=== PATIENT | female | born 1985 | race Hispanic/Latino ===

== ENCOUNTER 2018-09-20 15:04 | Emergency (ER) | payer SELFPAY ==
--- NOTE | 2018-09-20 15:26 | Emergency Department Report ---
Blank Doc - Documentation Documentation: This is a 33-year-old female that presents with right axilla boils. This initial assessment/diagnostic orders/clinical plan/treatment(s) is/are subject to change based on patient's health status, clinical progression and re- assessment by fellow clinical providers in the ED. Further treatment and workup at subsequent clinical providers discretion. Patient/guardians urged not to elope from the ED as their condition may be serious if not clinically assessed and managed. Initial orders include: 1- Patient sent to [facility] for further evaluation and treatment
[2018-09-20] MEDS ORDERED: NORCO 5/325 PO ONE (16:17)
[2018-09-20] MEDS ORDERED: IBUPROFEN PO ONE (16:17)
--- NOTE | 2018-09-20 16:18 | Emergency Department Report ---
Abscess Boil HPI - HPI Chief Complaint: Skin/Abscess/Foreign Body Stated Complaint: INFECTION UNDERARM Time Seen by Provider: 09/20/18 15:25 Duration: 4 Days Location: Other (right armpit) Severity: Moderate History: Yes Pain, Yes Purulent Drainage, Yes Previous History, No Fever, No Numbness, No Foreign Body, No Insect Bite HPI: 33-year-old female presents with cellulitis abscess right arm.. Patient states pain consult to touch. Patient states it's gotten bigger since it first began. She denies straining or fever Home Medications: Home Medications Medication Instructions Recorded Confirmed Last Taken Sertraline [Zoloft] 1 tab PO QDAY 07/14/13 09/25/13 07/13/13 08:00 Previous Rx's Medication Instructions Recorded Last Taken Type Bacitracin Zinc Oint 1 applicatio TP TID #1 tube 10/10/14 Unknown Rx Oxycodone HCl/Acetaminophen 1 each PO Q8HR PRN #15 tablet 10/10/14 Unknown Rx [Percocet 10-325 mg] HYDROcodone/APAP 10-325 [[place] 1 each PO Q6HR PRN #12 tablet 12/30/14 Unknown Rx 10/325] Promethazine Dm (Nf) [Phenergan Dm 5 ml PO Q6H PRN #120 ml 12/30/14 Unknown Rx 6.25/15 mg 5 ml] Amoxicillin [Trimox CAP] 500 mg PO Q8H #30 capsule 04/22/15 Unknown Rx Neomy/Polymyx B/Hc (Otic) Soln 4 drops OTIC TID #1 bottle 04/22/15 Unknown Rx [Cortisporin (Otic) Soln] Cyclobenzaprine HCl [Flexeril 5 MG 5 mg PO TID #30 tab 05/18/15 Unknown Rx TAB] Clindamycin [Clindamycin CAP] 300 mg PO Q8H #21 cap 09/20/18 Unknown Rx Ibuprofen [Motrin 800 MG tab] 800 mg PO Q8HR #30 tablet 09/20/18 Unknown Rx Allergies/Adverse Reactions: Allergies Allergy/AdvReac Type Severity Reaction Status Date / Time ketorolac tromethamine Allergy Rash Verified 03/27/13 21:04 [From Toradol] latex Allergy Itching Verified 03/27/13 21:04 tramadol Allergy Rash Verified 03/27/13 21:04 sulfamethoxazole AdvReac Vomiting Verified 03/27/13 21:04 [From Bactrim] trimethoprim [From Bactrim] AdvReac Vomiting Verified 03/27/13 21:04 ED Review of Systems ROS: Stated complaint: INFECTION UNDERARM Other details as noted in HPI ED Past Medical Hx - Past Medical History Hx Kidney Stones: Yes Hx Psychiatric Treatment: Yes (anxiety, suicidal ideation (seen in this ED 09/25/13 for SI)) Additional medical history: Endometriosis. Polysubstance abuse: methamphetamines, xanax, "pain pills" - Surgical History Past Surgical History?: Yes Hx Cholecystectomy: Yes Additional Surgical History: BTL. x 4. Ex-lap for endometriosis - Social History Smoking Status: Current Every Day Smoker Substance Use Type: None - Medications Home Medications: Home Medications Medication Instructions Recorded Confirmed Last Taken Type Sertraline [Zoloft] 1 tab PO QDAY 07/14/13 09/25/13 07/13/13 08:00 History Bacitracin Zinc Oint 1 applicatio TP TID #1 tube 10/10/14 Unknown Rx Oxycodone HCl/Acetaminophen 1 each PO Q8HR PRN #15 tablet 10/10/14 Unknown Rx [Percocet 10-325 mg] HYDROcodone/APAP 10-325 [[place] 1 each PO Q6HR PRN #12 tablet 12/30/14 Unknown Rx 10/325] Promethazine Dm (Nf) [Phenergan Dm 5 ml PO Q6H PRN #120 ml 12/30/14 Unknown Rx 6.25/15 mg 5 ml] Amoxicillin [Trimox CAP] 500 mg PO Q8H #30 capsule 04/22/15 Unknown Rx Neomy/Polymyx B/Hc (Otic) Soln 4 drops OTIC TID #1 bottle 04/22/15 Unknown Rx [Cortisporin (Otic) Soln] Cyclobenzaprine HCl [Flexeril 5 MG 5 mg PO TID #30 tab 05/18/15 Unknown Rx TAB] Clindamycin [Clindamycin CAP] 300 mg PO Q8H #21 cap 09/20/18 Unknown Rx Ibuprofen [Motrin 800 MG tab] 800 mg PO Q8HR #30 tablet 09/20/18 Unknown Rx ED Abscess Boil Physical Exam - Exam General: Vital signs noted. No distress. Alert and acting appropriately. Size: 3 cm Exam: Yes Tenderness, Yes Fluctuance, Yes Surrounding Cellulites/Erythema, Yes Normal Neurologic Exam, Yes Normal Circulation, No Lymphangitis, No Crepitation, No Heart Murmur I & D Note - I & D Note I & D Note: Patient positioned appropriately, 15cc lidocaine with/without epinephrine was used as a local anesthetic. #11 blade scalpal used for single incision. Additional local anesthetic injected into surrounding viable tissue prior to blunt dissection of loculated adhesions. Copius drainage of pus . Procedure tolerated without complications. Wound dressed with sterile 4x4 guaze and paper tape. Pt tolerated procedure well. ED Course Vital Signs 09/20/18 15:26 Temperature 98 F Pulse Rate 104 H Respiratory 18 Rate Blood Pressure 117/68 O2 Sat by Pulse 99 Oximetry Critical care attestation.: If time is entered above; I have spent that time in minutes in the direct care of this critically ill patient, excluding procedure time. ED Medical Decision Making - Medical Decision Making 33-year-old female presents with axillary abscess. Patient was intolerable of the procedure. Patient was screaming and yelling saying that she wants a procedure stopped. He was very belligerent and cursing. Therefore procedure was stopped After about 20 minutes patient stated she was ready to continue. I was unable to pack the abscess with iodoform gauze. I discussed with patient and her boyfriend to apply warm compresses 3 times a day and express Discuss to follow-up in 3 days to want check. Medicines are normal she is in no acute distress she was discharged. Instructions, antibiotics and pain medications. ED Disposition Clinical Impression: Axillary abscess Disposition: TO HOME OR SELFCARE Is pt being admited?: No Does the pt Need Aspirin: No Condition: Stable Instructions: Abscess Incision and Drainage (ED), Abscess (ED) Additional Instructions: Make sure to follow up with the primary care physician as discussed. Take all your medications as you've been prescribed. If you have any worsening symptoms or develop new symptoms please return to ED immediately. Prescriptions: Clindamycin [Clindamycin CAP] 300 mg PO Q8H #21 cap Ibuprofen [Motrin 800 MG tab] 800 mg PO Q8HR #30 tablet Referrals: FREEDOM VARGHESE MD [Primary Care Provider] - 3-5 Days Forms: Accompanied Note, Work/School Release Form(ED)
[2018-09-20] MEDS ORDERED: XYLOCAINE 1% 20 mL INFILTRATI NR (16:30)
[2018-09-20 18:19] VITALS: BP 117/70
== END 2018-09-20 18:22 | disposition home or self-care (01) ==
LOC: ED 15:04
DX: L02.411 Cutaneous abscess of right axilla (principal); Z79.899 Other long term (current) drug therapy; F17.200 Nicotine dependence, unspecified, uncomplicated; F41.9 Anxiety disorder, unspecified; Z90.49 Acquired absence of other specified parts of digestive tract; Z88.6 Allergy status to analgesic agent; Z91.040 Latex allergy status; Z88.2 Allergy status to sulfonamides
CPT/HCPCS: 99282

== ENCOUNTER 2022-01-08 12:36 | Emergency (ER) | payer SELFPAY ==
[2022-01-08] MEDS ORDERED: SODIUM CHLORIDE 0.9% 1000 ML 1,000 ML IV ONE (13:29)
[2022-01-08] MEDS ORDERED: ONDANSETRON 4 MG/2 ML INJ IV ONE (13:29)
[2022-01-08] MEDS ORDERED: ACETAMINOPHEN 500 MG TAB PO ONE (13:29)
[2022-01-08] MEDS ORDERED: FAMOTIDINE 20 MG/2 ML INJ IV ONE (13:29)
[2022-01-08 14:10] LABS: Basophils % (Auto) 0.3 % (0.0-1.8); Eosinophils # (Auto) 0.1 K/mm3 (0.0-0.4); Eosinophils % (Auto) 1.5 % (0.0-4.3); Hematocrit 37.5 % (30.3-42.9); Hemoglobin 12.5 gm/dl (10.1-14.3); Lymphocytes # (Auto) 0.3 K/mm3 (1.2-5.4); Lymphocytes % (Auto) 4.7 % (13.4-35.0); Mean Corpuscular HGB Conc 33 % (30-34); Mean Corpuscular Volume 82 fl (79-97); Monocytes # (Auto) 0.3 K/mm3 (0.0-0.8); Platelet Count 205 K/mm3 (140-440); Red Blood Count 4.58 M/mm3 (3.65-5.03); Red Cell Distribution Width 13.8 % (13.2-15.2)
[2022-01-08 14:31] LABS: Alanine Aminotransferase 14 units/L (7-56); BUN/Creatinine Ratio 11; Blood Urea Nitrogen 9 mg/dL (7-17); Calcium 8.8 mg/dL (8.4-10.2); Hemolysis Index 4
--- NOTE | 2022-01-08 15:15 | XRay Report ---
CHEST 1 VIEW INDICATION: COUGH, FEVER. COMPARISON: 07/14/2014 FINDINGS: Support devices: None. Heart: Normal. Lungs/Pleura: No acute pulmonary or pleural findings. IMPRESSION: 1. No acute findings. Signer Name: Tobi Blanca MD Signed: 01/08/2022 3:11 PM Workstation Name: [id number]
[2022-01-08 20:04] VITALS: BP 101/62
--- NOTE | 2022-01-08 20:35 | Emergency Department Report ---
- General Chief Complaint: Fever Stated Complaint: FEVER/NAUSEA/VOMITING Source: patient Mode of arrival: Ambulatory Limitations: No Limitations - History of Present Illness Initial Comments: Patient is a 36-year-old female with a history of endometriosis, polysubstance abuse, kidney stones, anxiety and depression who presents to the ED with complaint of acute onset persistent nasal and sinus congestion, persistent frontal sinus pressure, persistent dry cough with diffuse body aches and pains, fever and chills for the last 2 days. Patient states that in the last 12 hours her symptoms have worsened such that she was unable to eat because of worsening symptoms. Patient denies dizziness, syncope, nausea and vomiting or diarrhea, abdominal pain, chest pain or shortness of breath, dysuria, urinary frequency and urgency or change in vision. MD Complaint: fever, cough, rhinorrhea, nasal congestion, sinus pain, other (Diffuse body aches and pains) -: days(s) (2) Severity: moderate Severity scale (0 -10): 6 Quality: dull, aching Consistency: constant Improves With: nothing Worsens With: nothing Context: sick contacts Associated Symptoms: denies other symptoms, fever, chills, myalgias, headache, rhinorrhea, nasal congestion, cough. denies: diaphoresis, sore throat, stiff neck, chest pain, shortness of breath, abdominal pain, nausea, vomiting, diarrhea, dysuria, rash, right sweats, weight loss, epistaxis Treatments Prior to Arrival: none - Related Data Home Medications Medication Instructions Recorded Confirmed Last Taken Sertraline [Zoloft] 1 tab PO QDAY 07/14/13 09/25/13 07/13/13 08:00 Previous Rx's Medication Instructions Recorded Last Taken Type Bacitracin Zinc Oint 1 applicatio TP TID #1 tube 10/10/14 Unknown Rx Oxycodone HCl/Acetaminophen 1 each PO Q8HR PRN #15 tablet 10/10/14 Unknown Rx [Percocet 10-325 mg] HYDROcodone/APAP 10-325 [[place] 1 each PO Q6HR PRN #12 tablet 12/30/14 Unknown Rx 10/325] Promethazine Dm (Nf) [Phenergan Dm 5 ml PO Q6H PRN #120 ml 12/30/14 Unknown Rx 6.25/15 mg 5 ml] Amoxicillin [Trimox CAP] 500 mg PO Q8H #30 capsule 04/22/15 Unknown Rx Neomy/Polymyx B/Hc (Otic) Soln 4 drops OTIC TID #1 bottle 04/22/15 Unknown Rx [Cortisporin (Otic) Soln] Cyclobenzaprine HCl [Flexeril 5 MG 5 mg PO TID #30 tab 05/18/15 Unknown Rx TAB] Clindamycin [Clindamycin CAP] 300 mg PO Q8H #21 cap 09/20/18 Unknown Rx Ibuprofen [Motrin 800 MG tab] 800 mg PO Q8HR #30 tablet 09/20/18 Unknown Rx Acetaminophen [Tylenol] 500 mg PO Q6HR PRN #24 tablet 01/08/22 Unknown Rx Brompheniramine/Pseudoephed/Dm 5 ml PO Q6H #120 ml 01/08/22 Unknown Rx [Bromfed Dm Cough Syrup] Cetirizine HCl [Zyrtec 10mg tab] 10 mg PO DAILY #30 tab 01/08/22 Unknown Rx Allergies Allergy/AdvReac Type Severity Reaction Status Date / Time ketorolac tromethamine Allergy Rash Verified 01/08/22 12:47 [From Toradol] latex Allergy Itching Verified 01/08/22 12:47 tramadol Allergy Rash Verified 01/08/22 12:47 sulfamethoxazole AdvReac Vomiting Verified 01/08/22 12:47 [From Bactrim] trimethoprim [From Bactrim] AdvReac Vomiting Verified 01/08/22 12:47 ED Review of Systems ROS: Stated complaint: FEVER/NAUSEA/VOMITING Other details as noted in HPI Constitutional: chills, fever, malaise Eyes: denies: eye pain, eye discharge, vision change ENT: congestion. denies: ear pain, throat pain Respiratory: cough. denies: shortness of breath, wheezing Cardiovascular: denies: chest pain, palpitations Endocrine: no symptoms reported Gastrointestinal: denies: abdominal pain, nausea, vomiting, diarrhea Genitourinary: denies: urgency, dysuria, discharge Musculoskeletal: arthralgia, myalgia. denies: back pain, joint swelling Skin: denies: rash, lesions Neurological: denies: headache, weakness, paresthesias Psychiatric: denies: anxiety, depression Hematological/Lymphatic: denies: easy bleeding, easy bruising ED Past Medical Hx - Past Medical History Hx Kidney Stones: Yes Hx Psychiatric Treatment: Yes (anxiety, suicidal ideation (seen in this ED 09/25/13 for SI)) Additional medical history: Endometriosis. Polysubstance abuse: methamphetamines, xanax, "pain pills" - Surgical History Hx Cholecystectomy: Yes Additional Surgical History: BTL. x 4. Ex-lap for endometriosis - Social History Smoking Status: Current Every Day Smoker Substance Use Type: None - Medications Home Medications: Home Medications Medication Instructions Recorded Confirmed Last Taken Type Sertraline [Zoloft] 1 tab PO QDAY 07/14/13 09/25/13 07/13/13 08:00 History Bacitracin Zinc Oint 1 applicatio TP TID #1 tube 10/10/14 Unknown Rx Oxycodone HCl/Acetaminophen 1 each PO Q8HR PRN #15 tablet 10/10/14 Unknown Rx [Percocet 10-325 mg] HYDROcodone/APAP 10-325 [[place] 1 each PO Q6HR PRN #12 tablet 12/30/14 Unknown Rx 10/325] Promethazine Dm (Nf) [Phenergan Dm 5 ml PO Q6H PRN #120 ml 12/30/14 Unknown Rx 6.25/15 mg 5 ml] Amoxicillin [Trimox CAP] 500 mg PO Q8H #30 capsule 04/22/15 Unknown Rx Neomy/Polymyx B/Hc (Otic) Soln 4 drops OTIC TID #1 bottle 04/22/15 Unknown Rx [Cortisporin (Otic) Soln] Cyclobenzaprine HCl [Flexeril 5 MG 5 mg PO TID #30 tab 05/18/15 Unknown Rx TAB] Clindamycin [Clindamycin CAP] 300 mg PO Q8H #21 cap 09/20/18 Unknown Rx Ibuprofen [Motrin 800 MG tab] 800 mg PO Q8HR #30 tablet 09/20/18 Unknown Rx Acetaminophen [Tylenol] 500 mg PO Q6HR PRN #24 tablet 01/08/22 Unknown Rx Brompheniramine/Pseudoephed/Dm 5 ml PO Q6H #120 ml 01/08/22 Unknown Rx [Bromfed Dm Cough Syrup] Cetirizine HCl [Zyrtec 10mg tab] 10 mg PO DAILY #30 tab 01/08/22 Unknown Rx ED Physical Exam - General Limitations: No Limitations General appearance: alert, in no apparent distress - Head Head exam: Present: atraumatic, normocephalic, normal inspection - Eye Eye exam: Present: normal appearance, PERRL, EOMI Pupils: Present: normal accommodation - ENT ENT exam: Present: normal orophraynx, mucous membranes moist, TM's normal bilaterally, normal external ear exam, other (Grossly congested nasal passages) - Neck Neck exam: Present: normal inspection, full ROM. Absent: tenderness - Respiratory Respiratory exam: Present: normal lung sounds bilaterally. Absent: respiratory distress, wheezes, rales, rhonchi, stridor, chest wall tenderness, accessory muscle use, decreased breath sounds, prolonged expiratory - Cardiovascular Cardiovascular Exam: Present: normal rhythm, tachycardia, normal heart sounds. Absent: systolic murmur, diastolic murmur, rubs, gallop - GI/Abdominal GI/Abdominal exam: Present: soft, normal bowel sounds. Absent: tenderness, guarding, rebound, rigid, hyperactive bowel sounds, hypoactive bowel sounds - Extremities Exam Extremities exam: Present: normal inspection, full ROM, normal capillary refill - Back Exam Back exam: Present: normal inspection, full ROM. Absent: tenderness, CVA tenderness (R), CVA tenderness (L), muscle spasm, paraspinal tenderness, vertebral tenderness - Neurological Exam Neurological exam: Present: alert, oriented X3, CN II-XII intact, normal gait, reflexes normal - Psychiatric Psychiatric exam: Present: normal affect, normal mood - Skin Skin exam: Present: warm, dry, intact, normal color. Absent: rash ED Course Vital Signs 01/08/22 01/08/22 01/08/22 12:42 14:27 14:29 Temperature 100.2 F H 99.9 F H Pulse Rate 107 H 90 Respiratory 18 14 14 Rate Blood Pressure 101/68 108/84 [Right] O2 Sat by Pulse 96 96 Oximetry 01/08/22 01/08/22 17:55 20:03 Temperature 98.7 F 99.1 F Pulse Rate 78 72 Respiratory 14 14 Rate Blood Pressure 100/58 101/62 [Right] O2 Sat by Pulse 98 100 Oximetry ED Medical Decision Making - Lab Data Result diagrams: 01/08/22 13:40 01/08/22 13:40 - Radiology Data Radiology results: report reviewed, image reviewed [facility] [address] [place] [address] XRay Report Signed Patient: MICHAEL MUÑOZ MR#: [id number] : 1985 Acct:[id number] Age/Sex: 36 / F ADM Date: 01/08/22 Loc: ED Attending Dr: Ordering Physician: ANDRES GARRETT Date of Service: 01/08/22 Procedure(s): XR chest 1V ap Accession Number(s): [id number] cc: ANDRES GARRETT Fluoro Time In Minutes: CHEST 1 VIEW INDICATION: COUGH, FEVER. COMPARISON: 07/14/2014 FINDINGS: Support devices: None. Heart: Normal. Lungs/Pleura: No acute pulmonary or pleural findings. IMPRESSION: 1. No acute findings. Signer Name: Tobi Blanca MD Signed: 01/08/2022 3:11 PM Workstation Name: [id number] Transcribed By: TRAVIS Dictated By: Tobi Blanca MD Electronically Authenticated By: Tobi Blanca MD Signed Date/Time: 01/08/221510 DD/ 09 TD/TT: - Medical Decision Making This is a 36-year-old female with a history of endometriosis, polysubstance abuse, kidney stones, anxiety and depression who presents to the ED with complaint of acute onset persistent nasal and sinus congestion, persistent frontal sinus pressure, persistent dry cough with diffuse body aches and pains, fever and chills for the last 2 days. Patient states that in the last 12 hours her symptoms have worsened such that she was unable to eat because of worsening symptoms. In the ED, patient is alert and oriented x3 and is not in any distress. Patient is however tachycardic and febrile in triage. Patient was t reated for pain in the ED, also treated with normal saline 1 L IV bolus x1. Chest x-ray showed no acute cardiopulmonary abnormalities or pneumonitis. All lab test results were reviewed and are all nonactionable except for mild hypokalemia of 3.4 mmol/L and hyponatremia of 132 mmol/L respectively. On reevaluation, patient felt better, fever resolved, tachycardia also resolved and patient however declined to give any urine for urinalysis. Patient will discharge home and advised to follow-up with her primary care physician in 5 to 7 days for reevaluation or return to the ED immediately if symptoms get worse. - Differential Diagnosis Influenza; bronchitis; COVID-19; URI; pneumonia; UTI 7 Critical care attestation.: If time is entered above; I have spent that time in minutes in the direct care of this critically ill patient, excluding procedure time. ED Disposition Clinical Impression: Viral upper respiratory tract infection with cough, Suspected COVID-19 virus infection, Fever and chills Acute bronchitis Qualifiers: Bronchitis organism: other organism Qualified Code(s): J20.8 - Acute bronchitis due to other specified organisms Disposition: HOME / SELF CARE / HOMELESS Is pt being admited?: No Does the pt Need Aspirin: No Condition: Stable Instructions: Acute Bronchitis (ED), Upper Respiratory Infection, Adult, [id number], Cough, Adult, [id number], Fever, Adult, [id number], Acute Bronchitis, Adult, [id number] Additional Instructions: All lab test results were reviewed and are all nonactionable. Chest x-ray showed no acute cardiopulmonary abnormalities or pneumonitis. Therefore take medication with food, drink plenty of fluids, follow-up with your primary care physician in 7 to 10 days for reevaluation. Consider going for COVID-19 owen gnostic tests at any of the outpatient facilities. Return to the ED immediately if symptoms get worse. Prescriptions: Acetaminophen [Tylenol] 500 mg PO Q6HR PRN #24 tablet PRN Reason: Pain , Severe (7-10) Brompheniramine/Pseudoephed/Dm [Bromfed Dm Cough Syrup] 5 ml PO Q6H #120 ml Cetirizine HCl [Zyrtec 10mg tab] 10 mg PO DAILY #30 tab Referrals: [facility] [Provider Group] - 7-10 days Time of Disposition: 20:41 Print Language: DIVEHI
== END 2022-01-08 21:20 | disposition home or self-care (01) ==
LOC: ED 12:36
DX: J06.9 Acute upper respiratory infection, unspecified (principal); J20.9 Acute bronchitis, unspecified; Z20.822 Contact with and (suspected) exposure to COVID-19; N20.0 Calculus of kidney; Z90.49 Acquired absence of other specified parts of digestive tract; F17.200 Nicotine dependence, unspecified, uncomplicated; Z88.6 Allergy status to analgesic agent; Z88.1 Allergy status to other antibiotic agents; Z91.040 Latex allergy status; Z91.09 Other allergy status, other than to drugs and biological substances; Z79.899 Other long term (current) drug therapy
CPT/HCPCS: 36415; 71045; 80053; 84703; 85025; 96361; 96374; 96375; 99284; J2405; J3490; J7030